=== PATIENT | male | born 1935 | race Caucasian/White ===

== ENCOUNTER 2018-10-10 09:35 | Emergency (ER) | payer MEDICARE, BC ==
--- NOTE | 2018-10-10 10:50 | ED ---
GI/ HPI - HPI Summary HPI Summary: Pt is an 83 y/o male who presents to the ED c/o constipation. He hasnt had a BM in over 2 weeks. Pt states he recently went on vacation, and he always gets a cold and IBS, with mucus-y diarrhea, when he goes on vacation. As a preventive measure, he was given ammonium and Livosin. He was put on Miralax, antibiotics, and nasal steroids when he returned from vacation last week. An XR revealed possible PNA and he had a temperature of 101.3 degrees F. Pt believes he is now constipated from the medications. He tried taking magnesium citrate, but it did not relieve his constipation. He has not eaten much because eating makes him feel nauseated. Pt also c/o occasional watery stool, hoarse voice, and a cough. He denies any abdominal pain or pressure in his rectal area. Pt states a humidifier helps his cold symptoms. - History of Current Complaint Chief Complaint: EDGeneral Time Seen by Provider: 10/10/18 10:09 Stated Complaint: CONSTIPATION/RESP ISSUE/INSOMNIA Hx Obtained From: Patient Onset/Duration: Started Weeks Ago - 2-3, Still Present Timing: Constant Current Severity: Moderate Pain Intensity: 4 Location of Pain: Diffuse Associated Signs and Symptoms: Positive: Nausea, Constipation, Diarrhea, Change in Appetite, Cough Aggravating Factor(s): Food Alleviating Factor(s): Nothing - Allergy/Home Medications Allergies/Adverse Reactions: Allergies Allergy/AdvReac Type Severity Reaction Status Date / Time ENVIRONMENTAL Allergy Sneezing Uncoded 10/10/18 10:15 Home Medications: Home Medications Atorvastatin Calcium [Lipitor] 20 mg PO DAILY 10/10/18 [History Confirmed ] levoFLOXacin [Levofloxacin] 500 mg PO DAILY 10/10/18 [History Confirmed 10/10/18 ] PMH/Surg Hx/FS Hx/Imm Hx Respiratory History: Reports: Other Respiratory Problems/Disorders - OCCASIONAL SINUS PROBLEMS GI History: Reports: Hx Gastroesophageal Reflux Disease - CONTROL WITH MEDS, Hx Irritable Bowel - OCCASIONAL History: Reports: Other Problems/Disorders - ENLARGE PROSTATE Musculoskeletal History: Reports: Hx Arthritis, Hx Bursitis - HX OF, Hx Tendonitis - HX OF Sensory History: Reports: Hx Cataracts - BILATERAL, Hx Contacts or Glasses - READING GLASSES Denies: Hx Hearing Aid Opthamlomology History: Reports: Hx Cataracts - BILATERAL, Hx Contacts or Glasses - READING GLASSES - Surgical History Surgery Procedure, Year, and Place: 2000 LAPARASCOPIC CHOLECYSTECTOMY, [facility]. 2003 LEFT SHOULDER ROTATOR CUFF REPAIR, [place]. 2004 LEFT SHOULDER SURGERY, [place], [place]. 2008 RIGHT SHOULDER SURGERY, [place]. 2009 SINUS SURGERY, [place] Hx Anesthesia Reactions: No Infectious Disease History: No Infectious Disease History: Denies: Traveled Outside the [place] in Last 30 Days - Family History Known Family History: Positive: Other - [place] - Social History Alcohol Use: Daily Hx Substance Use: No Substance Use Type: Reports: None Hx Tobacco Use: Yes Smoking Status (MU): Former Smoker Type: Cigarettes Length of Time of Smoking/Using Tobacco: 10 YEARS Have You Smoked in the Last Year: No Review of Systems Positive: Fever Positive: Other - Hoarse voice Positive: Cough Positive: Diarrhea, Nausea, Other - Constipation, NEGATIVE: rectal pressure. Negative: Abdominal Pain All Other Systems Reviewed And Are Negative: Yes Physical Exam - Summary Physical Exam Summary: Appearance: Well appearing, no pain distress Skin: warm, dry, reflects adequate perfusion Head/face: normal Eyes: EOMI, CEM ENT: mucous membranes moist, hoarse voice, clear mucus in nose and posterior pharynx Neck: supple, non-tender Respiratory: rustling breath sounds in bases, no wheezes, rales, or rhonchi, breath sounds present Cardiovascular: RRR, pulses symmetrical Abdomen: non-tender, soft, no distention Bowel Sounds: present Musculoskeletal: normal, strength/ROM intact Neuro: normal, sensory motor intact, A&Ox3 Rectal: loose stool Triage Information Reviewed: Yes Vital Signs On Initial Exam: Initial Vitals Temp Pulse Resp BP Pulse Ox 98.2 F 88 20 145/88 98 10/10/18 09:44 10/10/18 09:44 10/10/18 09:44 10/10/18 09:44 10/10/18 09:44 Vital Signs Reviewed: Yes Diagnostics - Vital Signs Vital Signs Temp Pulse Resp BP Pulse Ox 10/10/18 09:44 98.2 F 88 20 145/88 98 - Laboratory Lab Statement: Any lab studies that have been ordered have been reviewed, and results considered in the medical decision making process. - Radiology Abdomen XR Radiology Interpretation Completed By: Radiologist - 1. NONSPECIFIC BOWEL GAS PATTERN. 2. GASEOUS DISTENTION OF THE COLON, WITHOUT DILATATION, WITH MINIMAL STOOL WITHIN THE COLON. ED physician reviewed radiology report. - EKG 10:25 Cardiac Rate: NL - 75 bpm EKG Rhythm: Sinus Rhythm ST Segment: Normal Summary of EKG Findings: Baseline artifact, short CT without delta wave, low voltage Re-Evaluation - Re-Evaluation First Eval Re-Evaluation Time: 11:10 Change: Improved Comment: Pt feels much better and wants to be discharged. GIGU Course/Dx - Course Course Of Treatment: Patient with a history of irritable bowel syndrome that had been taking medications for constipation and only having loose stools. There is no constipation evident on rectal exam or on KUB. The bowel gas pattern is nonobstructive and there is no stool seen but rather gaseous distention. He'll use Gas-X, abdominal massage, continued Levsin. He will discontinue MiraLAX, magnesium citrate and other prn's. - Diagnoses Differential Diagnoses - Male: Constipation, Diverticulitis, Appendicitis, Bowel Obstruction Provider Diagnoses: Ileus, URI (upper respiratory infection) Discharge - Sign-Out/Discharge Documenting (check all that apply): Patient Departure - Discharge - Discharge Plan Condition: Improved Disposition: HOME Prescriptions: Ondansetron ODT TAB* [Zofran 4 MG Odt TAB*] 4 mg PO Q6H PRN #15 tab.odt PRN Reason: Nausea Patient Education Materials: Upper Respiratory Infection (ED), Ileus (ED) Referrals: Bal Peguero MD [Primary Care Provider] - Additional Instructions: Discontinue Vidhya, MiraLAX. You may continue Levsin if needed for cramping. Small frequent meals and increase liquids. Exercises abdominal massage may help. Call your doctor first thing in the morning to schedule prompt follow- up. You may continue internasal Flonase. Return if worse, fevers, uncontrolled pain or other concerns as discussed. - Billing Disposition and Condition Condition: IMPROVED Disposition: Home - Attestation Statements Document Initiated by Scribe: Yes Documenting Scribe: Mary Grace Hagen Provider For Whom Scribe is Documenting (Include Credential): Lane Sun MD Scribe Attestation: Mary Grace Erazo, scribed for Lane Sun MD on 10/10/18 at 1153. Scribe Documentation Reviewed: Yes Provider Attestation: The documentation as recorded by the scribe, Mary Grace Hagen accurately reflects the service I personally performed and the decisions made by me, Lane Sun MD
[2018-10-10 11:17] VITALS: BP 141/70
== END 2018-10-10 11:16 | disposition home or self-care (01) ==
LOC: ED 09:35
DX: K56.7 Ileus, unspecified (principal); J06.9 Acute upper respiratory infection, unspecified; R11.0 Nausea; K59.00 Constipation, unspecified; R19.7 Diarrhea, unspecified; Z87.891 Personal history of nicotine dependence
CPT/HCPCS: 74018; 93005; 99282